=== PATIENT | male | born 1955 | race Caucasian/White ===

== ENCOUNTER → 2023-09-21 13:01 | Outpatient (CLI) | payer MEDICARE, BC, SELFPAY ==
--- NOTE | 2023-09-21 13:02 | DI.ECHO.S_ITS ---
[facility] +---------+ : : [address] : : : : [id number] : : : : Phone: [phone]---------+ Echocardiogram Report + + :Name: TREVOR WESTBROOK Study Date: 09/21/2023 Height: 67 in : :[facility] ReadingLocation: Weight: 200 lb : : Gender: Male BSA: 2.0 m2 : :: 1955 Age: 68 yrs BP: 140/95 mmHg: :Reason For Study: BRADYCARDIA : :Ordering Physician: DENY, : :JOANIE Performed By: Sakshi Oropeza : :Referring: JOANIE BARCLAY : + + Interpretation Summary Left ventricular systolic function is normal with an estimated ejection fraction of 55 to 60% without any focal wall motion abnormality. Left ventricular size and systolic function appear normal. Diastolic function is likely normal with normal filling pressures. The right ventricle appears normal in size and systolic function. Right ventricular systolic pressure cannot be estimated but CVP is likely 3 to 8 mmHg. Both atria are normal in size. There is mild to moderate pulmonic valve regurgitation through an anatomically normal valve. There is trivial aortic regurgitation but no other significant valvular abnormality. The aortic root and ascending aorta are moderately enlarged. The patient was in sinus rhythm at 53 to 69 bpm during the exam. Procedure: A two-dimensional transthoracic echocardiogram with color flow and Doppler was performed. The study quality was technically adequate. There is no prior echocardiogram noted for this patient. The patient was in sinus rhythm with heart rates between 53-69 bpm during the exam. Left Ventricle: The left ventricle is normal in size and wall thickness. The estimated left ventricular end diastolic volume is 102 ml. Left ventricular systolic function appears normal without focal wall motion abnormalities. The ejection fraction is estimated to be 55-60%. Diastolic parameters suggest probable normal left ventricular diastolic function and normal filling pressures. Right Ventricle: The right ventricle is normal in size and function. Atria: Both atria are normal in size. There is no Doppler evidence for an interatrial shunt. Mitral Valve: There is mild mitral annular calcification. The mitral valve leaflets appear normal. There is no evidence of stenosis, fluttering, or prolapse. There is trace mitral regurgitation. Aortic Valve: The aortic valve is trileaflet. The aortic valve is slightly calcified. The aortic valve opens well. There is no aortic valve stenosis. There is trace aortic regurgitation. Tricuspid Valve: The tricuspid valve is normal in structure and function. There is trace tricuspid regurgitation. Pulmonary artery pressures cannot be estimated because of the lack of a measurable TR jet velocity but the IVC suggests a CVP of around 8 mmHg. Pulmonic Valve: The pulmonic valve leaflets are thin and pliable; valve motion is normal. There is mild to moderate pulmonic regurgitation. Great Vessels: The aortic root is moderately dilated. The ascending aorta is moderately enlarged. The IVC is dilated (diameter is greater than 2.1 cm) yet it collapses greater than 50% with a sniff. This suggests a right atrial pressure of 8 mm Hg. Pericardium/ Pleura There is no pericardial effusion. There is no pleural effusion. MMode/2D Measurements & Calculations LVIDd: 5.7 cm LVOT diam: 2.1 cm LVIDs: 3.7 cm Ao root diam: 4.5 cm FS: 35.6 % asc Aorta Diam: 4.4 cm EPSS: 1.0 cm Ao Arch Diam (Prox Trans): 3.3 cm IVSd: 0.89 cm LVPWd: 0.87 cm LV pollack. diameter/BSA (cm/m^2): 2.8 LV sys. diameter/BSA (cm/m^2): 1.8 LA A2 area: 17.2 cm2 RA long axis: 6.2 cm LA A4 area: 15.9 cm2 RA area: 13.7 cm2 LA length (vol): 5.4 cm RA vol: 25.7 ml LA vol: 43.0 ml RA : 12.7 ml/m2 LA vol index: 21.3 ml/m2 IVC diam: 2.2 cm RVD1 (basal): 2.7 cm RVD2 (mid): 2.7 cm TAPSE: 2.0 cm Doppler Measurements & Calculations Ao V2 max: 137.8 cm/sec LVOT Max José Antonio: 117.9 cm/sec Ao V2 mean: 87.2 cm/sec LV V1 max P.6 mmHg Ao max P.6 mmHg LV V1 VTI: 26.2 cm Ao mean P.5 mmHg POPPY(I,D): 3.3 cm2 Ao V2 VTI: 28.9 cm POPPY(V,D): 3.1 cm2 sev ratio: 0.91 POPPY indexed to BSA (cm^2/m^2): 1.6 MV E max josé antonio: 72.2 cm/sec PA V2 max: 100.6 cm/sec MV A max josé antonio: 91.1 cm/sec PA V2 mean: 69.9 cm/sec MV E/A: 0.79 PA mean P.1 mmHg Med Peak E' José Antonio: 4.8 cm/sec PA pr(Accel): 36.2 mmHg E/E' med: 15.0 Lat Peak E' José Antonio: 8.2 cm/sec E/E' lat: 8.8 E/e' average: 11.9 MV dec time: 0.20 sec SV(LVOT): 94.8 ml Reading Physician:07:02 AM
--- NOTE | 2023-09-21 13:03 | DI.NM.S_ITS ---
PROCEDURE: NM EXERCISE TREADMILL NON NUC COMPARISON: None. INDICATIONS: Bradycardia, unspecified. FINDINGS: Rest ECG sinus bradycardia, 55 bpm. Roman protocol 9:59, maximum heart rate 139 bpm (93% peak predicted), maximum blood pressure 168/90, 12.8 METS, TODD -39%. Exercise ECG sinus tachycardia, no ST segment changes or arrhythmias. The patient did not complain of exercise-induced chest pain. IMPRESSION: Low risk study. No evidence of exercise-induced ischemia or arrhythmia. Normal hemodynamic response. Very good exercise capacity. Dictated by: Shelbie Jacobo D.O. on 09/21/2023 at 18:01 Approved by: Shelbie Jacobo D.O. on 09/21/2023 at 18:03
== END ==
PROVIDERS: Referring Provider Specialist; Visit Provider Specialist
DX: I34.81 Nonrheumatic mitral (valve) annulus calcification (principal); I71.40 Abdominal aortic aneurysm, without rupture, unspecified; I37.1 Nonrheumatic pulmonary valve insufficiency; R00.1 Bradycardia, unspecified
CPT/HCPCS: 93017; 93306